=== PATIENT | female | born 1945 | race Caucasian/White ===

== ENCOUNTER → 2017-01-21 | Outpatient (CLI) | payer OTHER | LOC: CIMAGING 10:52 | PROVIDERS: ATTEND Internal Medicine | DX: E04.1 Nontoxic single thyroid nodule (principal) | CPT/HCPCS: 76536-PO ==

== ENCOUNTER → 2018-03-06 | Outpatient (CLI) | payer OTHER | LOC: BHLMT 10:45 | PROVIDERS: ATTEND Internal Medicine Cardiovascular Disease | DX: R00.2 Palpitations (principal) | CPT/HCPCS: 93225-PO; 93226-PO; 93306-PO ==

== ENCOUNTER → 2018-03-26 | Outpatient (CLI) | payer OTHER, MEDICARE | LOC: FIMAGING 12:40 | PROVIDERS: ATTEND Internal Medicine | DX: E04.2 Nontoxic multinodular goiter (principal); R00.2 Palpitations ==

== ENCOUNTER → 2018-09-17 | Outpatient (CLI) | payer OTHER, MEDICARE | LOC: FIMAGING 08:52 | PROVIDERS: ATTEND Internal Medicine | DX: K80.80 Other cholelithiasis without obstruction (principal) ==

== ENCOUNTER → 2018-10-03 | Outpatient (CLI) | payer OTHER, MEDICARE | LOC: FIMAGING 11:36 | PROVIDERS: ATTEND Surgery | DX: R10.9 Unspecified abdominal pain (principal); Z80.41 Family history of malignant neoplasm of ovary ==

== ENCOUNTER 2018-10-31 08:59 | Observation (INO) | payer OTHER, MEDICARE ==
[2018-10-31] MEDS ORDERED: LR 1,000 ML IV ONE (09:11)
[2018-10-31] MEDS ORDERED: BUPIVACAINE 0.25% 10 ML SDV ONE (09:11)
[2018-10-31] MEDS ORDERED: SCOPOLAMINE HYDROBROMIDE 1 MG/3 DAYS PATCH TD ONE (09:44)
--- NOTE | 2018-10-31 09:45 | PDANEPAE ---
ANE Past Medical History - Cardiovascular History Hx Hypertension: No Hx Arrhythmias: No Hx Chest Pain: No Hx Coronary Artery / Peripheral Vascular Disease: No Hx CHF / Valvular Disease: No Hx Palpitations: Yes Cardiovascular History Comment: INTERMITTENT THROUGHOUT WEEK. RECENT CARDIAC TESTING NEG - Pulmonary History Hx COPD: No Hx Asthma/Reactive Airway Disease: Yes Hx Recent Upper Respiratory Infection: Yes Hx Oxygen in Use at Home: No Hx Sleep Apnea: No Sleep Apnea Screening Result - Last Documented: Negative Pulmonary History Comment: ENVIRONMENTAL TRIGGERS. URI SEP AND AUGUST. PNEUMONIA - Neurologic History Hx Cerebrovascular Accident: No Hx Seizures: No Hx Dementia: No - Endocrine History Hx Diabetes: No Endocrine History Comment: THYROID NODULES - Renal History Hx Renal Disorders: No - Liver History Hx Hepatic Disorders: Yes Hepatic History Comment: GALL STONES - Neurological & Psychiatric Hx Hx Neurological and Psychiatric Disorders: No - Cancer History Hx Cancer: No - Congenital Disorder History Hx Congenital Disorders: No - GI History Hx Gastrointestinal Disorders: Yes Gastrointestinal History Comment: IBS - Other Health History Other Health History: PRONE TO MOTION SICKNESS. CERVICAL DISC DX. NEUROPATHY. MENIGINITIS 1975 - Chronic Pain History Chronic Pain: Yes (LOW BACK) - Surgical History Prior Surgeries: HYSTERECTOMY. REMVL GANGLION CYST. SINUS SURG. TONSILLECTOMY. APPENDECTOMY ANE Review of Systems Review of systems is: negative Review of Systems: - Exercise capacity Exercise capacity: >=4 METS METS (RN): 3 METS ANE Patient History - Allergies Allergies/Adverse Reactions: caffeine Allergy (Verified 10/21/18 10:54) HEADACHE cashew nut Allergy (Verified 10/21/18 10:57) ORAL SWELLING codeine Allergy (Verified 10/21/18 10:53) HEADACHE/NAUSEA erythromycin base Allergy (Verified 10/21/18 10:52) HEADACHE Iodinated Contrast- Oral and IV Dye Allergy (Verified 10/21/18 10:55) RED SKIN peanut Allergy (Verified 10/21/18 10:57) ORAL SWELLING Penicillins Allergy (Verified 10/21/18 10:52) Unknown shellfish derived Allergy (Verified 10/21/18 10:55) Anaphylaxis soy Allergy (Verified 10/21/18 10:54) Itching Sulfa (Sulfonamide Antibiotics) Allergy (Verified 10/21/18 10:53) Unknown CATFISH Allergy (Uncoded 10/21/18 10:56) REDNESS DEWAYNE Allergy (Uncoded 10/21/18 10:54) HEADACHE - Home Medications Home medications: home medication list seen and reviewed Home Medications: Advair 100/50 (*) PRN 10/21/18 [Last Taken 3 Months Ago ~08/01/18] Arnica QID 10/21/18 [Last Taken 3 Days Ago ~10/28/18] - NPO status NPO Status: no food or drink >8 hours NPO Since - Liquids (Date): 10/31/18 NPO Since - Liquids (Time): 07:00 NPO Since - Solids (Date): 10/30/18 NPO Since - Solids (Time): 19:30 - Anes Hx Anes Hx: post operative nausea - Smoking Hx Smoking Status: Never smoked ANE Labs/Vital Signs - Vital Signs Vital Signs: reviewed preoperatively; see RN documention for details Blood Pressure: 138/78 Heart Rate: 65 Respiratory Rate: 16 O2 Sat (%): 96 Height: 165.1 cm Weight: 54.431 kg ANE Physical Exam - Airway Neck exam: FROM Mallampati Score: Class 1 Mouth exam: normal dental/mouth exam - Pulmonary Pulmonary: clear to auscultation - Cardiovascular Cardiovascular: regular rate and rhythym - ASA Status ASA Status: II ANE Anesthesia Plan Anesthesia Plan: general endotracheal anesthesia
--- NOTE | 2018-10-31 09:48 | PDHPUP ---
History & Physical Update H&P update statement: This history and physical update is based on an assessment of the patient which was completed after admission or registration (within 24 hours), but prior to the surgery/procedure. H&P update: H&P reviewed & patient examined, no change in patient's condition since H&P completed
[2018-10-31] MEDS ORDERED: MIDAZOLAM 2 MG/2 ML VIAL IVP ONE (09:59)
[2018-10-31] MEDS ORDERED: fentaNYL 100 MCG/2 ML INJ ONE ×2 (10:05→11:39)
[2018-10-31] MEDS ORDERED: PROPOFOL 200 MG/20 ML VIAL ONE (10:05)
[2018-10-31] MEDS ORDERED: ROCURONIUM 50 MG/5 ML VIAL ONE (10:07)
[2018-10-31] MEDS ORDERED: METOCLOPRAMIDE 10 MG/2 ML VIAL ONE (10:07)
[2018-10-31] MEDS ORDERED: DEXAMETHASONE 4 MG/ML VIAL ONE (10:08)
[2018-10-31] MEDS ORDERED: PHENYLEPHRINE HCL 100 MCG/ML SYR ONE (10:10)
[2018-10-31] MEDS ORDERED: HYDROmorphONE/DILAUDID 2 MG/ML INJ ONE ×2 (10:48→15:05)
[2018-10-31] MEDS ORDERED: ONDANSETRON 4 MG/2 ML VIAL ONE ×3 (10:50→14:33)
[2018-10-31] MEDS ORDERED: SUGAMMADEX SODIUM 200 MG/2 ML VIAL IVP ONE (11:01)
[2018-10-31] MEDS ORDERED: PHENYLEPHRINE HCL 100 MCG/ML SYR IVP PRN (11:03)
[2018-10-31] MEDS ORDERED: ALBUTEROL 3 ML DEYVIAL IH PRN (11:03)
[2018-10-31] MEDS ORDERED: ACETAMINOPHEN 500 MG TAB PO PRN (11:03)
[2018-10-31] MEDS ORDERED: HYDROmorphONE/DILAUDID 2 MG/ML INJ IVP PRN (11:03)
[2018-10-31] MEDS ORDERED: fentaNYL 100 MCG/2 ML INJ IVP PRN (11:03)
[2018-10-31] MEDS ORDERED: METOCLOPRAMIDE 10 MG/2 ML VIAL IVP PRN (11:03)
[2018-10-31] MEDS ORDERED: PROMETHAZINE HCL 25 MG/ML INJ IVP PRN (11:03)
[2018-10-31] MEDS ORDERED: MEPERIDINE 25 MG/0.5 ML AMP IVP PRN (11:03)
[2018-10-31] MEDS ORDERED: LABETALOL HCL 5 MG/ML 20 ML MDV IVP PRN (11:03)
[2018-10-31] MEDS ORDERED: LR 500 ML IV PRN (11:03)
[2018-10-31] MEDS ORDERED: NALOXONE HCL 0.4 MG/ML INJ IVP PRN (11:03)
[2018-10-31] MEDS ORDERED: DEXAMETHASONE 4 MG/ML VIAL IVP PRN (11:03)
[2018-10-31] MEDS ORDERED: DIAZEPAM 5 MG/ML 1 ML SYR IVP PRN (11:03)
--- NOTE | 2018-10-31 11:14 | POSTOPPROG ---
Post Op Note Date of Operation: 10/31/18 Surgeon: Julius Carlos (, FACS) Minister Of Religion: Monica Garza PA-C Anesthesiologist: Beverly Tse MD Anesthesia: GET(General Endotracheal) Pre-op Diagnosis: cholelithiasis Post-op Diagnosis: same Procedure: lap cholecystectomy Findings: single gallstone, mild chronic inflammation Inf/Abcess present in the surg proc area at time of surgery?: No Complications: none Specimen(s): gallbladder
[2018-10-31] MEDS ORDERED: LR 1,000 ML IV SCH (11:30)
[2018-10-31] MEDS ORDERED: KETOROLAC 15 MG/1 ML SDV ONE (11:40)
[2018-10-31] MEDS: KETOROLAC 15 MG/1 ML SDV IVP PRN ×2 (11:42→21:57)
[2018-10-31] MEDS: ONDANSETRON 4 MG/2 ML VIAL IVP PRN ×2 (14:05→14:35)
[2018-10-31] MEDS ORDERED: PROMETHAZINE HCL 25 MG/ML INJ ONE (15:05)
--- NOTE | 2018-10-31 15:27 | POSTANESTH ---
Post Anesthetic Evaluation Cardiovascular Status: Normal, Stable Respiratory Status: Normal, Stable Level of Consciousness/Mental Status: Can Participate in Eval Pain Control: Adequate, Prn Tx Ordered Nausea/Vomiting Control: Adequate, Prn Tx Ordered Complications Possibly Related to Anesthesia: None Noted
[2018-10-31] MEDS ORDERED: ONDANSETRON DISINTEGRATING 4 MG TAB PO PRN (15:46)
--- NOTE | 2018-10-31 15:53 | SOAPPROG ---
SOAP Progress Note Assessment/Plan: Assessment: s/p uncomplicated lap kalin post op pain and nausea with significant sedation and weakness hx of reaction to multiple meds/substances Plan: Admit observation/supportive and symptomatic care for post op pain and nausea 10/31/18 15:51 Subjective: moderate pain/feeling woozy after receiving Dilaudid/Phenergan in the PACU Objective: Vital Signs Temp Pulse Resp BP Pulse Ox 36.5 C 65 16 123/66 H 100 10/31/18 13:25 10/31/18 10:01 10/31/18 15:33 10/31/18 15:31 10/31/18 15:31 10/30/18 10/31/18 11/01/18 05:59 05:59 05:59 Intake Total 810 Output Total 10 Balance 800 Physical Exam - Physical Exam General Appearance: mild distress Respiratory: lungs clear, decreased breath sounds Cardiac/Chest: regular rate, rhythm Abdomen: non-tender, soft, other (surgical) Neuro/Psych: other ICD10 Worksheet Patient Problems: Problems Problem Status Onset Cholelithiasis Acute Postoperative nausea Acute - ICD10 Problem Qualifiers (1) Postoperative nausea (2) Cholelithiasis Qualifiers: Cholelithiasis location: gallbladder Cholecystitis presence: with cholecystitis Cholecystitis acuity: chronic Biliary obstruction: without biliary obstruction Qualified Code(s): K80.10 - Calculus of gallbladder with chronic cholecystitis without obstruction
[2018-11-01 08:08] VITALS: BP 89/51
[2018-11-01] MEDS ORDERED: IBUPROFEN 600 MG TAB PO PRN (09:01)
--- NOTE | 2018-11-01 09:17 | PDDCSUM ---
Discharge Summary Discharge Summary: #[id number] Discharge Summary Dictated S MD Terrance, FACS
--- NOTE | 2018-11-01 09:47 | GDS ---
DISCHARGE DIAGNOSES: 1. Cholelithiasis and chronic intermittent biliary colic. 2. Postoperative nausea. PROCEDURE PERFORMED: 10/31, laparoscopic cholecystectomy. HOSPITAL COURSE: For details of admission, history and physical, please see dictated summary. Brief ly, the patient is a 73-year-old female with symptomatic biliary colic, admitted for elective laparos copic cholecystectomy. This was performed with the intention of the patient being discharged home th e same day. Following surgery, patient had moderate to severe nausea and received Dilaudid and Phene rgan in the recovery room, which resulted in significant improvement in her symptoms, but also render ed her somewhat sedated and unsuitable for discharge to home. The patient lives alone in [facility] d was planning on having a friend spend the night with her, and I recommended that she be admitted fo r observation. Her symptoms resolved. She had no further nausea. On the morning of discharge, she was tolerating a soft diet and taking ibuprofen for pain. The patient has a history of multiple eduard rgies, including opioids, and this may have triggered her postoperative nausea. CONDITION ON DISCHARGE: Improved. FOLLOWUP: Followup arranged in my office later this week, November 06, 2018. DISCHARGE MEDICATIONS: Ibuprofen 600 mg p.o. q.6 hours p.r.n. pain, Zofran 4 mg p.o. q.4 hours p.r.n . nausea. The patient takes no medications at home. DISCHARGE INSTRUCTIONS: Activity, diet and wound care were discussed with the patient prior to disch arge. At time of discharge, she was afebrile, ambulatory. Her incision is healing well, without sig n of infection. /[id number]/MODL
--- NOTE | 2018-11-01 10:02 | GOP ---
DATE OF OPERATION: 10/31/2018 SURGEON: Julius Carlos MD, FACS SIENE MAKER: Monica Garza PA-C. ANESTHESIA: General endotracheal. ANESTHESIOLOGIST: Carmencita Paul MD. PREOPERATIVE DIAGNOSIS: Cholelithiasis and biliary colic. POSTOPERATIVE DIAGNOSIS: Cholelithiasis and biliary colic. PROCEDURE PERFORMED: Laparoscopic cholecystectomy. FINDINGS: Mild chronic inflammation of the gallbladder with a solitary 1 cm stone. No evidence of obstruction or acute cholecystitis. ESTIMATED BLOOD LOSS: 10 mL. DESCRIPTION OF PROCEDURE: After informed consent was obtained, the patient was brought to the operating room and placed under general anesthesia. The abdomen was prepped and draped in the usual fashion. Before proceeding, a time-out and identification of the patient was performed. The patient declined surgical prophylaxis with antibiotics due to multiple allergies and understood that her risk of postoperative infection was mildly elevated. The safe and timely completion of the operation required the help of a qualified 1st assistant quality manager and Monica Garza PA-C, was requested to attend. The patient had a prior low midline incision. The abdomen was entered through an infraumbilical longitudinal extension of the midline incision. Dissection was carried through the skin and subcutaneous tissues, and fascia after liberally infiltrating the area with 0.25% Marcaine. Peritoneal cavity was entered under direct visualization, and a 12 mm port was established. A pneumoperitoneum was created with CO2 gas to a pressure of 15 mmHg. A 30 degree 5 mm scope was introduced and the peritoneal cavity was visualized. Additional ports were placed in the subxiphoid position to the right of the falciform ligament in the right upper quadrant midclavicular line and right upper quadrant anterior axillary line. This allowed introduction of atraumatic grasping forceps which were used to grasp the gallbladder by the fundus and elevate it cephalad. There was evidence of mild hepatic steatosis. There was no acute inflammation of the gallbladder. The infundibulum was grasped and retracted anteriorly and posteriorly, allowing careful dissection of the peritoneum away from the cystic duct. The cystic artery presented posteriorly, and this was dispatched with a Harmonic Scalpel. The cystic duct was doubly hemoclipped and divided. The gallbladder was then dissected away from the liver edge using the Harmonic Scalpel with minimal blood loss. The specimen was retrieved through the umbilical port site. The operative field appeared hemostatic. There was no evidence of adhesions in the remainder of the abdominal cavity. All ports were removed and the pneumoperitoneum was evacuated. The infraumbilical fascial defect was repaired with interrupted 0 Vicryl sutures. Subcutaneous tissues were approximated with 3-0 Monocryl suture. Skin was closed with 4-0 Monocryl suture in a subcuticular fashion. Topical Dermabond was applied. Patient was returned extubated to the recovery room in satisfactory condition. Needle, sponge, and instrument counts were correct. COMPLICATIONS: None. /[id number]/MODL MTDD
--- NOTE | 2018-11-01 10:37 | ASMTDCNOTE ---
Case Management Discharge Discharge Order Complete? Answers: Yes Patient to Obtain Answers: via Family Medications Transportation Arranged Answers: Family/Friends Discharge Comments Notes: Pt being discharged independently. Family to transport. IM signed and in chart. No other CM needs identified. Date Signed: 11/01/2018 10:37 AM Electronically Signed By:RAMSEY Dalton
--- NOTE | 2018-11-01 10:48 | ASDISCHSUM ---
Discharge Information Plan Status:Home with No Needs Medically Cleared to Leave: Discharge Date: D/C Disposition: ADT D/C Disposition:Home, Routine, Self-Care Projected Discharge Date: Transportation at D/C: Discharge Delay Reason: Follow-Up Date: Discharge Slot: Final Diagnosis: Placement Information Patient Contact Information Contact Name:ANDREW (SONNY) Relationship:Other Address:[facility] Work Phone: City: [facility] Phone: State/Zip Code: Email: Financial Information Financial Class:Medicare Primary Plan Desc:MEDICARE OUTPATIENT Primary Plan Number:[id number] Secondary Plan Desc:BJ/JOSY SUPPLEMENT Secondary Plan Number:[id number] Assessment Information Case Management Discharge Plan Note Case Management Discharge Discharge Order Complete? Answers: Yes Patient to Obtain Answers: via Family Medications Transportation Arranged Answers: Family/Friends Discharge Comments Notes: Pt being discharged independently. Family to transport. IM signed and in chart. No other CM needs identified. Date Signed: 11/01/2018 10:37 AM Electronically Signed By:RAMSEY Dalton LACE LACE Length of stay for Answers: Less than 1 day current admission Acuity / Level of Answers: No Care: Did the patient have an inpatient admission? Comorbidities - select Answers: Other Notes: Bilary Colic all that apply # of Emergency department Answers: 0 visits in the last 6 months Score: 1 Date Signed: 11/01/2018 10:47 AM Electronically Signed By:RAMSEY Dalton Intervention Information Intervention Type:*IM-Signed Date of Service:11/01/2018 10:47 AM Patient Type:Observation Staff Member:RAMSEY Wilson Ema Hours: Discipline: Severity: Comment:Signed and in chart
== END 2018-11-01 10:45 | disposition home or self-care (01) ==
LOC: FSGY 08:59 → F3E 15:48 → F1N 19:58
PROVIDERS: ADMIT Surgery; ATTEND Surgery
PROC: 0FT44ZZ Resection of Gallbladder, Percutaneous Endoscopic Approach (ICD-10-PCS; principal; 2018-10-31 10:45)
DX: K80.20 Calculus of gallbladder without cholecystitis without obstruction (principal); R11.0 Nausea; K58.0 Irritable bowel syndrome with diarrhea; Z80.41 Family history of malignant neoplasm of ovary
CPT/HCPCS: 47562; 88304; J1100; J1170; J1885; J2250; J2370; J2405; J2550; J2704; J2765; J3010

== ENCOUNTER → 2019-03-16 | Outpatient (CLI) | payer OTHER, MEDICARE | LOC: FIMAGING 12:09 | PROVIDERS: ATTEND Internal Medicine | DX: E04.9 Nontoxic goiter, unspecified (principal) ==